=== PATIENT | male | born 1985 | race Caucasian/White ===

== ENCOUNTER 2023-04-24 12:39 | Emergency (ER) | payer OTHER ==
[~2023-04-24] VITALS: Ht 180.3 cm; Wt 84.1 kg
[2023-04-24 13:09] VITALS: BP 160/95; PULSE 63; RESP 18; TEMP 97.3; O2SAT 98
[2023-04-24 14:46] LABS: URINE AMPHETAMINE SCREEN NEGATIVE (Neg); URINE BARBITUATE SCREEN NEGATIVE (Neg); URINE BENZODIAZEPINES SCREEN NEGATIVE (Neg); URINE CANNABINOID SCREEN POSITIVE (Neg); URINE COCAINE SCREEN NEGATIVE (Neg); URINE METHADONE SCREEN NEGATIVE (Neg); URINE OPIATE SCREEN NEGATIVE (Neg); URINE PHENCYCLIDINE SCREEN NEGATIVE (Neg)
== END 2023-04-24 15:18 | disposition home or self-care (01) ==
LOC: ER 12:39
DX: F12.10 Cannabis abuse, uncomplicated (principal); F17.200 Nicotine dependence, unspecified, uncomplicated
CPT/HCPCS: 80305; 99283

== ENCOUNTER 2023-05-01 23:49 | Emergency (ER) | payer OTHER ==
[~2023-05-01] VITALS: Ht 180.3 cm; Wt 81.8 kg
[2023-05-01 23:58] VITALS: TEMP 97.3
[2023-05-02] MEDS ORDERED: TETanus/Pertussis (Acell)/Diphther VAC/PF (Tdap-Adult) 0.5ml syringe IMVAC ONE (00:10)
[2023-05-02 00:18] VITALS: BP 147/92; PULSE 107; RESP 18; O2SAT 98
--- NOTE | 2023-05-02 00:24 | NUR ---
TRIAGE BY OFELIA CALERO, NOT HENRIK CALERO
== END 2023-05-02 01:12 ==
LOC: ER 23:50
DX: S01.01XA Laceration without foreign body of scalp, initial encounter (principal); F12.90 Cannabis use, unspecified, uncomplicated; X58.XXXA Exposure to other specified factors, initial encounter; Y93.89 Activity, other specified; Y92.89 Other specified places as the place of occurrence of the external cause; Y99.8 Other external cause status
CPT/HCPCS: 12001; 70450; 72125; 90471; 90715; 99285; A6449